=== PATIENT | female | born 1935 | race Caucasian/White ===

== ENCOUNTER 2016-12-23 16:50 | Observation (INO) ==
--- NOTE | 2016-12-23 16:59 | Emergency Department Note ---
Disposition Clinical Impression: Chest pain Disposition: Admitted As Inpatient Condition: Fair General Adult HPI - General Stated complaint: C/P Time Seen by Provider: 12/23/16 16:54 - Related Data Home Medications Medication Instructions Recorded Confirmed ALPRAZolam [Xanax 0.5 MG Tablet] 0.5 - 1 mg PO BID 12/23/16 12/24/16 Amitriptyline [Elavil] 50 mg PO HS PRN 12/23/16 12/24/16 Levothyroxine [Synthroid] 75 mcg PO QAM 12/23/16 12/24/16 Metoprolol Succinate 50 mg PO DAILY 12/23/16 12/24/16 Tramadol HCl [Ultram] 50 - 100 mg PO TID PRN 12/23/16 12/24/16 Alendronate Sodium [Fosamax] 70 mg PO QWEEK 12/24/16 12/24/16 Aspirin [Lo-Dose Aspirin EC] 81 mg PO DAILY 12/24/16 12/24/16 Citalopram Hydrobromide 20 mg PO DAILY 12/24/16 12/24/16 [Citalopram HBr] Dicyclomine [Bentyl] 10 mg PO QID PRN 12/24/16 12/24/16 Gabapentin [Neurontin] 300 mg PO DAILY 12/24/16 12/24/16 Pravastatin Sodium [Pravachol] 40 mg PO DAILY 12/24/16 12/24/16 Allergies Allergy/AdvReac Type Severity Reaction Status Date / Time Penicillins [PCN] Allergy Swelling Verified 12/23/16 17:02 of Lip/Tongue/Throat Sulfa (Sulfonamide Allergy Itching Verified 12/24/16 08:16 Antibiotics) morphine AdvReac Hallucinati Verified 12/23/16 17:02 ng Course Vital Signs Temperature 98.1 F 12/23/16 16:56 Pulse Rate 51 12/23/16 16:56 Respiratory Rate 16 12/23/16 16:56 Blood Pressure 179/93 12/23/16 16:56 O2 Sat by Pulse Oximetry 99 12/23/16 16:56 Temperature 98.3 F 12/24/16 15:51 Pulse Rate 58 12/24/16 15:51 Respiratory Rate 16 12/24/16 15:51 Blood Pressure 131/77 12/24/16 15:51 O2 Sat by Pulse Oximetry 98 12/24/16 15:51 Oxygen Delivery Oxygen Delivery Room Air Medical Decision Making - Lab Data Result diagrams: 12/23/16 17:24 12/23/16 17:24 Lab Results 12/23/16 12/23/16 12/23/16 Range/Units 17:24 17:24 17:24 WBC 5.3 (4.3-11.1) K/mcL RBC 4.65 (3.82-4.97) M/mcL Hgb 13.4 (11.5-15.4) g/dL Hct 41.3 (35.3-44.9) % MCV 88.8 (83.0-100.0) fL MCH 28.8 (28.0-33.3) pg MCHC 32.4 (31.6-35.5) g/dL RDW 12.6 (11.5-14.5) % Plt Count 183 (140-400) K/mcL MPV 11.8 (9.4-12.4) fL Immature Gran % 0.2 (0-4) % Seg Neutrophils % 59.7 % Lymphocytes % 23.4 % Monocytes % 9.3 % Eosinophils % 7.0 % Basophils % 0.4 % Neutrophils # 3.1 (1.6-8.9) K/mcL Lymphocytes # 1.2 (0.6-4.6) K/mcL Monocytes # 0.5 (0.0-1.3) K/mcL Eosinophils # 0.4 (0.0-0.6) K/mcL Basophils # 0.0 (0.0-0.2) K/mcL Sodium 141 (136-145) mEq/L Potassium 4.5 (3.5-4.5) mEq/L Chloride 110 H (98-109) mEq/L Carbon Dioxide 25 (19-29) mEq/L BUN 17 (7-20) mg/dL Creatinine 1.03 (0.57-1.11) mg/dL Est GFR ( Amer) > 60 (> 60) Est GFR (Non-Af Amer) 51 L (> 60) BUN/Creatinine Ratio 17 (6-26) Glucose 98 (70-99) mg/dL Calculated Osmolality 294 (280-300) Calcium 9.5 (8.6-10.8) mg/dL Total Bilirubin 0.8 (0.2-1.2) mg/dL Direct Bilirubin 0.3 (0.0-0.5) mg/dL Indirect Bilirubin 0.5 (0.0-1.2) mg/dL AST 14 (5-34) Units/L ALT 9 (0-55) Units/L Alkaline Phosphatase 72 (38-126) Units/L Troponin I (0-0.03) ng/mL Serum Total Protein 7.0 (6.0-8.3) g/dL Albumin 3.6 (3.5-5.0) g/dL Globulin 3.4 (2.4-3.5) g/dL Albumin/Globulin Ratio 1.1 (1.1-2.2) 12/23/ Range/Units 17:24 WBC (4.3-11.1) K/mcL RBC (3.82-4.97) M/mcL Hgb (11.5-15.4) g/dL Hct (35.3-44.9) % MCV (83.0-100.0) fL MCH (28.0-33.3) pg MCHC (31.6-35.5) g/dL RDW (11.5-14.5) % Plt Count (140-400) K/mcL MPV (9.4-12.4) fL Immature Gran % (0-4) % Seg Neutrophils % % Lymphocytes % % Monocytes % % Eosinophils % % Basophils % % Neutrophils # (1.6-8.9) K/mcL Lymphocytes # (0.6-4.6) K/mcL Monocytes # (0.0-1.3) K/mcL Eosinophils # (0.0-0.6) K/mcL Basophils # (0.0-0.2) K/mcL Sodium (136-145) mEq/L Potassium (3.5-4.5) mEq/L Chloride (98-109) mEq/L Carbon Dioxide (19-29) mEq/L BUN (7-20) mg/dL Creatinine (0.57-1.11) mg/dL Est GFR ( Amer) (> 60) Est GFR (Non-Af Amer) (> 60) BUN/Creatinine Ratio (6-26) Glucose (70-99) mg/dL Calculated Osmolality (280-300) Calcium (8.6-10.8) mg/dL Total Bilirubin (0.2-1.2) mg/dL Direct Bilirubin (0.0-0.5) mg/dL Indirect Bilirubin (0.0-1.2) mg/dL AST (5-34) Units/L ALT (0-55) Units/L Alkaline Phosphatase (38-126) Units/L Troponin I 0.00 (0-0.03) ng/mL Serum Total Protein (6.0-8.3) g/dL Albumin (3.5-5.0) g/dL Globulin (2.4-3.5) g/dL Albumin/Globulin Ratio (1.1-2.2) Attestation Statement - Attestation Attestation: I examined this patient and my medical decision-making was reviewed with the Resident Physician. I agree with the documented findings, disposition and treatment plan as described except to the extent set forth below. [id number] time provided The patient complains of chest discomfort and bilateral arm pain. Symptoms started 3 weeks ago. States she gets diaphoretic and working in her garden. h/ o [place] in the past. She appears in no acute distress on exam. She is somewhat of a reserved historian. Patient evaluated in conjunction with the resident physician
--- NOTE | 2016-12-23 17:13 | Emergency Department Note ---
Disposition Clinical Impression: Chest pain Disposition: Admitted As Inpatient Condition: Fair Referrals: NO,PCP [Non-Partnered Physician] - Time of Disposition: 18:12 Chest Pain HPI - General Chief Complaint: ED Chest Pain Stated Complaint: C/P Time Seen by Provider: 12/23/16 16:54 Source: patient Limitations: no limitations Vital Signs Reviewed: Yes Nursing Notes Reviewed: Yes - History of Present Illness HPI Narrative: Patient is an 81-year-old female with a past medical history of SD that was treated with medication not stents, presents today with not feeling well for the past 3 weeks. She states she has felt weak and low energy. She has a history of anemia. The patient states that she does have some chest pain that is left-sided and sharp she feels like the pain worsens when she is outside working in her garden's on a hot day and she comes inside when she rests the pain improves. She denies radiation. She denies any fevers, chills, vomiting, shortness of breath, pain with breath, abdominal pain, diarrhea, urinary dysuria , change in frequency, urgency. Severity scale (1-10): 8 - Related Data Allergies Allergy/AdvReac Type Severity Reaction Status Date / Time Penicillins [PCN] Allergy Swelling Verified 12/23/16 17:02 of Lip/Tongue/Throat Sulfa (Sulfonamide Allergy Itching Verified 12/23/16 17:02 Antibiotics) morphine AdvReac Hallucinati Verified 12/23/16 17:02 ng All systems ED: reviewed and negative except as stated. Constitutional: Denies: fever, chills Cardiovascular: Reports: chest pain. Denies: palpitations, dyspnea on exertion Respiratory: Denies: cough, dyspnea, wheezes Gastrointestinal: Denies: abdominal pain, nausea, vomiting, diarrhea, hematemesis, melena Genitourinary: Denies: urgency, dysuria, frequency, hematuria Musculoskeletal: Denies: back pain, neck pain Integumentary: Denies: rash, abrasion Neurological: Denies: headache, weakness Chest Pain PMH - Past Medical History Medical history: Reports: hyperlipidemia, hypertension, myocardial infarction, osteoporosis Psychiatric history: Reports: anxiety SPRAY BLENDER history: Reports: no SPRAY BLENDER history - Social History Smoking Status: Never smoker Alcohol use: Reports: none Drug use: Reports: none Physical Exam Patient is a pleasant 81-year-old female she is sitting up in bed smiling pleasant and speaking in full sentences in no distress. - General Limitations: no limitations General appearance: alert, in no apparent distress - Head Head exam: atraumatic, normocephalic, normal inspection - Eye Eye exam: Present: normal appearance, PERRL, EOMI - ENT ENT exam: normal exam, normal oropharynx - Neck Neck exam: Present: normal inspection, full ROM, trachea midline. Absent: tenderness - Chest Chest inspection: Present: normal inspection, symmetric chest wall rise. Absent : tenderness - Respiratory Respiratory exam: Present: normal lung sounds bilaterally. Absent: respiratory distress, wheezes - Cardiovascular Cardiovascular exam: Present: regular rate, normal rhythm, normal heart sounds - Abdominal Exam Abdominal exam: Present: soft, Non-Tender, normal bowel sounds - Extremities Exam Extremities exam: Present: normal inspection, full ROM, normal capillary refill. Absent: tenderness, pedal edema, calf tenderness - Expanded Lower Extremity Exam Hip/Pelvis exam: Present: normal inspection, full ROM Lower leg exam: Present: normal inspection, full ROM. Absent: tenderness, swelling Neurovascular/Tendon exam: Present: normal capillary refill. Absent: pulse deficit, motor deficit, sensory deficit - Back Exam Back exam: Present: normal inspection, full ROM - Neurological Exam Neurological exam: Present: alert, oriented X3 - Psychiatric Psychiatric exam: Present: normal affect, normal mood - Skin Skin exam: Present: warm, dry, intact, normal color Course Course Narrative: Patient is a 81-year-old female to past medical history of SD who presents with not feeling well for the past 3 weeks and she also had some intermittent chest pain that she does not notice completely a pattern of exertion however she states when she is outside working in the heat she notices it gets worse. It is improved when she rests however, it does occurred spontaneously when she is sitting down.I will initiate a cardiac workup for this patient. - Reevaluation(s) Reevaluation #1: I have treated the patient on her lab states she is having a 4 out of 10 chest pain today we will order some sublingual nitroglycerin for her pain Time: 17:50 Reevaluation #2: I spoke with the hospitalists Niurka she agrees to admit the patient for ACS rule out. I spoke with the patient and updated her with the plan patient agrees. Time: 18:11 Vital Signs Temperature 98.1 F 12/23/16 16:56 Pulse Rate 51 12/23/16 16:56 Respiratory Rate 16 12/23/16 16:56 Blood Pressure 179/93 12/23/16 16:56 O2 Sat by Pulse Oximetry 99 12/23/16 16:56 Temperature 98.1 F 12/23/16 16:56 Pulse Rate 50 12/23/16 18:08 Respiratory Rate 16 12/23/16 18:08 Blood Pressure 170/91 12/23/16 18:08 O2 Sat by Pulse Oximetry 96 12/23/16 18:08 Oxygen Delivery Oxygen Delivery Room Air Chest Pain - Medical Records Medical records reviewed: Yes I reviewed the patient's medical records. - Lab Data Lab results reviewed: Yes I reviewed the patient's lab results. Result diagrams: 12/23/16 17:24 12/23/16 17:24 Lab Results 12/23/16 12/23/16 12/23/16 Range/Units 17:24 17:24 17:24 WBC 5.3 (4.3-11.1) K/mcL RBC 4.65 (3.82-4.97) M/mcL Hgb 13.4 (11.5-15.4) g/dL Hct 41.3 (35.3-44.9) % MCV 88.8 (83.0-100.0) fL MCH 28.8 (28.0-33.3) pg MCHC 32.4 (31.6-35.5) g/dL RDW 12.6 (11.5-14.5) % Plt Count 183 (140-400) K/mcL MPV 11.8 (9.4-12.4) fL Immature Gran % 0.2 (0-4) % Seg Neutrophils % 59.7 % Lymphocytes % 23.4 % Monocytes % 9.3 % Eosinophils % 7.0 % Basophils % 0.4 % Neutrophils # 3.1 (1.6-8.9) K/mcL Lymphocytes # 1.2 (0.6-4.6) K/mcL Monocytes # 0.5 (0.0-1.3) K/mcL Eosinophils # 0.4 (0.0-0.6) K/mcL Basophils # 0.0 (0.0-0.2) K/mcL Sodium 141 (136-145) mEq/L Potassium 4.5 (3.5-4.5) mEq/L Chloride 110 H (98-109) mEq/L Carbon Dioxide 25 (19-29) mEq/L BUN 17 (7-20) mg/dL Creatinine 1.03 (0.57-1.11) mg/dL Est GFR ( Amer) > 60 (> 60) Est GFR (Non-Af Amer) 51 L (> 60) BUN/Creatinine Ratio 17 (6-26) Glucose 98 (70-99) mg/dL Calculated Osmolality 294 (280-300) Calcium 9.5 (8.6-10.8) mg/dL Total Bilirubin 0.8 (0.2-1.2) mg/dL Direct Bilirubin 0.3 (0.0-0.5) mg/dL Indirect Bilirubin 0.5 (0.0-1.2) mg/dL AST 14 (5-34) Units/L ALT 9 (0-55) Units/L Alkaline Phosphatase 72 (38-126) Units/L Troponin I (0-0.03) ng/mL Serum Total Protein 7.0 (6.0-8.3) g/dL Albumin 3.6 (3.5-5.0) g/dL Globulin 3.4 (2.4-3.5) g/dL Albumin/Globulin Ratio 1.1 (1.1-2.2) 12/23/16 Range/Units 17:24 WBC (4.3-11.1) K/mcL RBC (3.82-4.97) M/mcL Hgb (11.5-15.4) g/dL Hct (35.3-44.9) % MCV (83.0-100.0) fL MCH (28.0-33.3) pg MCHC (31.6-35.5) g/dL RDW (11.5-14.5) % Plt Count (140-400) K/mcL MPV (9.4-12.4) fL Immature Gran % (0-4) % Seg Neutrophils % % Lymphocytes % % Monocytes % % Eosinophils % % Basophils % % Neutrophils # (1.6-8.9) K/mcL Lymphocytes # (0.6-4.6) K/mcL Monocytes # (0.0-1.3) K/mcL Eosinophils # (0.0-0.6) K/mcL Basophils # (0.0-0.2) K/mcL Sodium (136-145) mEq/L Potassium (3.5-4.5) mEq/L Chloride (98-109) mEq/L Carbon Dioxide (19-29) mEq/L BUN (7-20) mg/dL Creatinine (0.57-1.11) mg/dL Est GFR ( Amer) (> 60) Est GFR (Non-Af Amer) (> 60) BUN/Creatinine Ratio (6-26) Glucose (70-99) mg/dL Calculated Osmolality (280-300) Calcium (8.6-10.8) mg/dL Total Bilirubin (0.2-1.2) mg/dL Direct Bilirubin (0.0-0.5) mg/dL Indirect Bilirubin (0.0-1.2) mg/dL AST (5-34) Units/L ALT (0-55) Units/L Alkaline Phosphatase (38-126) Units/L Troponin I 0.00 (0-0.03) ng/mL Serum Total Protein (6.0-8.3) g/dL Albumin (3.5-5.0) g/dL Globulin (2.4-3.5) g/dL Albumin/Globulin Ratio (1.1-2.2) - Radiology Data Radiology results reviewed: Yes I reviewed the patient's radiology results. Chest X-Ray 12/23/16 17:06 IMPRESSION: 1. No acute cardiopulmonary process. 2. No evidence for large hiatal hernia. D/ / Gerard Sprague MD / Gerard Sprague MD Interpreting Provider: Gerard Sprague MD - EKG Data EKG attestation: Yes I reviewed and interpreted this EKG. EKG results narrative: I interpreted the patient's EKG she has sinus bradycardia at a rate of 53 she is normal axis. UT, QRS, QT intervals are within normal limits. I do not see any ST elevation or depression or Q waves, no signs of ischemia. Unchanged when compared to her prior EKG from 11/12/2011
[2016-12-23 17:37] LABS: Basophils % 0.4 %; Eosinophils # 0.4 K/mcL (0.0-0.6); Hematocrit 41.3 % (35.3-44.9); Hemoglobin 13.4 g/dL (11.5-15.4); Immature Granulocytes % 0.2 % (0-4); Lymphocytes # 1.2 K/mcL (0.6-4.6); Lymphocytes % 23.4 %; Mean Corpuscular HGB Conc 32.4 g/dL (31.6-35.5); Mean Corpuscular Hemoglobin 28.8 pg (28.0-33.3); Mean Corpuscular Volume 88.8 fL (83.0-100.0); Mean Platelet Volume 11.8 fL (9.4-12.4); Monocytes # 0.5 K/mcL (0.0-1.3); Monocytes % 9.3 %; Neutrophils # 3.1 K/mcL (1.6-8.9); Platelet Count 183 K/mcL (140-400); Red Blood Count 4.65 M/mcL (3.82-4.97); Red Cell Distribution Width 12.6 % (11.5-14.5); Segmented Neutrophils % 59.7 %
[2016-12-23 17:50] LABS: BUN/Creatinine Ratio 17 (6-26); Blood Urea Nitrogen 17 mg/dL (7-20); Calcium 9.5 mg/dL (8.6-10.8); Carbon Dioxide 25 mEq/L (19-29); Chloride 110 mEq/L (98-109); Glucose 98 mg/dL (70-99); Osmolality,Calculated 294 (280-300); Potassium 4.5 mEq/L (3.5-4.5); Sodium 141 mEq/L (136-145); eGFR For African Americans > 60 (> 60); eGFR For Non-African Americans 51 (> 60)
[2016-12-23 17:53] LABS: Albumin 3.6 g/dL (3.5-5.0); Albumin/Globulin Ratio 1.1 (1.1-2.2); Bilirubin,Direct 0.3 mg/dL (0.0-0.5); Bilirubin,Indirect 0.5 mg/dL (0.0-1.2); Bilirubin,Total 0.8 mg/dL (0.2-1.2); Globulin 3.4 g/dL (2.4-3.5)
[2016-12-23] MEDS: Nitroglycerin 0.4 MG TAB.SUBL SL PRN ×4 (18:07→21:23)
[2016-12-23] MEDS ORDERED: 0.9 % Sodium Chloride 1,000 ML IVC ONE (18:15)
[2016-12-23] MEDS ORDERED: *HR* FentaNYL (PF) 100 MCG/2 ML VIAL IVP ONE (18:15)
[2016-12-23] MEDS ORDERED: Ibuprofen 600 MG TABLET PO ONE (18:22)
[2016-12-23] MEDS ORDERED: Acetaminophen 325 MG TABLET PO PRN (19:19)
[2016-12-23] MEDS ORDERED: Naloxone 0.4 MG/ML INJ IVP PRN (19:19)
[2016-12-23] MEDS ORDERED: D5% in 0.45% NACL 1,000 ML IVC SCH (20:15)
--- NOTE | 2016-12-23 20:26 | Internal Med History&Physical ---
Date of Encounter: 12/23/16 Time of Encounter: 20:00 Assessment and Plan (1) Chest pain Current visit: Yes Status: Acute Left-sided chest pain. Intermittent. Moderate risk for ACS and angina. Patient does not want a cardiac stress test at this time. We will get 2-D echo of the heart. Trend troponins. Monitor with telemetry. Check lipid profile and A1c. Qualifiers: Chest pain type: precordial pain Qualified Code(s): R07.2 - Precordial pain (2) Generalized weakness Current visit: Yes Status: Acute Check urine for any signs of acute urinary tract infection. Gentle hydration. PT OT evaluation. Internal Medicine - H&P: HPI Chief complaint: Weakness, chest pain Admitted From: Emergency Dept Plans for Post Hospital Care: Home History of present illness: Ms. Falcon is a 81 year old female patient with a history of hypertension, hyperlipidemia, [place], osteoporosis presented to the ER complaining of 3-4 week history of generalized weakness with intermittent chest pain that is left-sided and gets worse when she is working in her garden. It does not radiate anywhere. It resolved spontaneously. Patient has also been having some weakness in her upper extremities that comes and goes. Denies any dysuria but had couple of episodes of chills. No fever. Also complains of some shortness of breath. No cough or palpitations. Patient reports that she had a cardiac stress test done a few years back. It was not positive. She did not like this stress test and does not wish to undergo a stress test at this time. Past Med Surg Social Fam HX - Past Medical History Attestation: Yes The following information was validated with the patient. Source: patient Medical history: hyperlipidemia, hypertension, myocardial infarction, osteoporosis Psychiatric history: anxiety - Social History Smoking Status: Never smoker Smokeless Tobacco Status: No Alcohol use: none Drug use: none - Additional Family History Additional family history: There is history of cardiac disease in patient's family Internal Medicine - H&P: Meds Allergies Penicillins [PCN] Allergy (Verified 12/23/16 17:02) Swelling of Lip/Tongue/Throat Sulfa (Sulfonamide Antibiotics) Allergy (Verified 12/23/16 17:02) Itching morphine Adverse Reaction (Verified 12/23/16 17:02) Hallucinating All Systems PM: A 10-system review of systems was performed and is negative for pertinent findings except as documented above in the HPI. - Constitutional Constitutional: chills, malaise, weakness, no fever(s), no night sweats - EENT Eyes: no change in vision, no discharge, no pain, no photophobia Ears: no ear discharge, no ear pain, no tinnitus Nose, mouth and throat: no dysphagia, no nasal discharge, no neck pain, no sore throat - Cardiovascular Cardiovascular ROS IM: chest pain, dyspnea on exertion, no diaphoresis, no dyspnea, no lightheadedness, no palpitations, no syncope - Respiratory Respiratory: dyspnea on exertion, no cough, no dyspnea, no wheezing, no excessive phlegm production - Gastrointestinal Gastrointestinal: no abdominal pain, no diarrhea, no hematemesis, no hematochezia, no melena, no nausea, no vomiting - Genitourinary Genitourinary: no change in urinary stream, no dysuria, no flank pain, no hematuria - Musculoskeletal Musculoskeletal ROS IM: no numbness, no tingling - Integumentary Integumentary IM: no rash, no unusual bruising - Neurological Neurological ROS: no confusion, no convulsions, no focal weakness, no numbness, no tingling, no tremor(s) - Hematologic/Lymphatic Hematologic/Lymphatic: no easy bruising - Constitutional Vitals: Temp Pulse Resp BP Pulse Ox 98.1 F 50 16 170/91 96 12/23/16 16:56 12/23/16 18:08 12/23/16 18:46 12/23/16 18:46 12/23/16 18:08 General appearance: Present: cooperative, A&O X 3, pleasant, no acute distress, answers questions appropriately - Eye Eye exam: Present: EOMI, PERRL, conjuntiva pink, sclera anicteric - Neck Neck exam general surgery: Present: supple, trachea midline. Absent: lymphadenopathy - Respiratory Respiratory exam: Present: CTAB. Absent: accessory muscle use, rales, rhonchi, wheezes - Cardiovascular Cardiovascular exam: Present: RRR, +S1, +S2. Absent: diastolic murmur, gallop, rubs, systolic murmur - GI/Abdominal GI/Abdominal exam: Present: normal bowel sounds, soft, no peritoneal signs. Absent: distended, tenderness - Extremities Exam Extremities exam: Present: warm, radial pulses palpable and symetrical. Absent : calf tenderness, cyanotic, pedal edema - Neurological Exam Neurological exam: Present: CN II-XII intact, oriented X3, no focal deficits, strengths equal and symetr throughout. Absent: facial droop, speech deficit - Skin Skin exam: Present: dry, intact Internal Med - H&P Results - Labs CBC & Chem 7: 12/23/16 17:24 12/23/16 17:24 - EKG Data -: EKG Interpreted by Myself EKG shows normal: sinus rhythm Rate: bradycardia - EKG Data Interpretation IM: normal EKG - Impressions Impressions Chest x-ray does not show any acute infiltrate. Patient does have hiatal hernia.
[2016-12-23 21:13] LABS: Bilirubin,Urine Negative (Negative); Blood,Urine Trace (Negative); Clarity,Urine Clear (Clear); Color,Urine Yellow (Yellow); Glucose,Urine (UA) Normal (Normal); Ketones,Urine Negative (Negative); Leukocyte Esterase,Urine Negative (Negative); Nitrite,Urine Negative (Negative); Protein,Urine Negative (Neg-Trace); Specific Gravity,Urine 1.007 (1.010-1.025); Urobilinogen,Urine Normal (Normal)
[2016-12-23 21:15] LABS: Bacteria,Urine None Seen per hpf (None-Few); Hyaline Casts,Urine None Seen per lpf (None-Few); RBC,Urine 0-3 per hpf (0-3); Squamous Epithelial Cell,Urine Few per lpf (None-Few); WBC,Urine 0-3 per hpf (0-3)
[2016-12-23] MEDS ORDERED: traMADol 50 MG TABLET PO PRN (21:46)
[2016-12-23] MEDS ORDERED: ALPRAZolam 0.5 MG TABLET PO PRN (21:46)
[2016-12-24 06:10] LABS: Hemoglobin A1C 4.9 %
[2016-12-24 06:13] LABS: Chol/HDL Ratio 3.1 (0-4.9)
[2016-12-24] MEDS ORDERED: Metoprolol XL (24 HR) Succ 50 MG TAB.ER.24H PO SCH (09:00)
[2016-12-24] MEDS ORDERED: Aspirin Enteric Coated 81 MG Tablet PO SCH (09:00)
[2016-12-24 15:51] VITALS: BP 131/77
--- NOTE | 2016-12-24 15:57 | Electrocardiograph Report ---
[address] [address] Test Date: 2016-12-23 Pat Name: Nick Falcon Department: 105 Room: 3B Gender: F Golf Cart Attendant: : 1935 Requested By: Joce Lancaster Order Number: [id number] Reading MD: Trino Shannon MD Measurements Intervals [place] Rate: 53 P: 21 SC: 162 QRS: 28 QRSD: 85 T: 52 QT: 409 QTc: 392 Interpretive Statements SINUS BRADYCARDIA Electronically Signed On 12-24-2016 15:55:46 EDT by Trino Shannon MD
--- NOTE | 2016-12-24 16:45 | Discharge Summary ---
Date of Encounter: 12/24/16 Time of Encounter: 14:00 - Discharge Diagnosis (1) Chest pain Priority: Primary Status: Acute Qualifiers: Chest pain type: precordial pain Qualified Code(s): R07.2 - Precordial pain (2) Herniated disc, cervical Status: Acute (3) Generalized weakness Status: Acute - Discharge Medications Home Medications: ALPRAZolam [Xanax 0.5 MG Tablet] 0.5 - 1 mg PO BID 12/23/16 [History] Amitriptyline [Elavil] 50 mg PO HS PRN 12/23/16 [History] Levothyroxine [Synthroid] 75 mcg PO QAM 12/23/16 [History] Metoprolol Succinate 50 mg PO DAILY 12/23/16 [History] Tramadol HCl [Ultram] 50 - 100 mg PO TID PRN 12/23/16 [History] Alendronate Sodium [Fosamax] 70 mg PO QWEEK 12/24/16 [History] Aspirin [Lo-Dose Aspirin EC] 81 mg PO DAILY 12/24/16 [History] Citalopram Hydrobromide [Citalopram HBr] 20 mg PO DAILY 12/24/16 [History] Dicyclomine [Bentyl] 10 mg PO QID PRN 12/24/16 [History] Gabapentin [Neurontin] 300 mg PO DAILY 12/24/16 [History] Pravastatin Sodium [Pravachol] 40 mg PO DAILY 12/24/16 [History] Allergies/Adverse Reactions: Allergies Penicillins [PCN] Allergy (Verified 12/23/16 17:02) Swelling of Lip/Tongue/Throat Sulfa (Sulfonamide Antibiotics) Allergy (Verified 12/24/16 08:16) Itching morphine Adverse Reaction (Verified 12/23/16 17:02) Hallucinating Procedures/tests Complete & Pending: Procedures Performed prior 72 hours Category Date Time Status CT cervical spine wo con [CT] Routine Cat Scan 12/24/16 15:04 Completed EV echocardiogram Routine Y 12/24/16 20:15 Completed Date of admission: 12/23/16 18:25 Primary care physician: Wagner Minor MD Consults: 12/23/16 20:15 Consult to Occupational Therapy [CONS] Routine Comment: Evaluate, develop and implement POC Reason for Consult: Gen weakness Consult to Physical Therapy [CONS] Routine Comment: Evaluate, develop and implement POC Reason for Consult: Gen weakness 12/24/16 11:12 Consult to Microchip Specialist [CONS] Routine Reason for SW Consult: discharge planning Discharging clinician: Joslyn george) Anticipated date of discharge: 12/24/16 - Patient Status Condition: Fair - Discharge Instructions Forms: ED Satisfaction Letter Hospital course: Ms. Falcon is a 81 year old female - Time Spent with Patient Total time spent providing and/or coordinating discharge services: - Constitutional Vitals: Temp Pulse Resp BP Pulse Ox 98.3 F 58 16 131/77 98 12/24/16 15:51 12/24/16 15:51 12/24/16 15:51 12/24/16 15:51 12/24/16 15:51 General appearance: Present: cooperative, A&O X 3, pleasant, no acute distress, answers questions appropriately
--- NOTE | 2016-12-24 17:08 | Internal Med Progress Note ---
Date of Encounter: 12/24/16 Time of Encounter: 14:20 - Assessment and plan (1) Chest pain Current Visit: Yes Status: Acute Assessment and plan: Patient reports intermittent left chest pain for the last 3-4 weeks. There is no radiation and it resolved spontaneously. She is also been having weakness in both upper extremities that comes and goes, she states that the right is worse than the left. He denies any shortness of breath, cough, palpitations, dizziness, blurred vision. Troponins are negative. Chest x-ray is negative. Echocardiogram remains unread at this point. Patient does not want to wait and she is going to go home. S1-S2 is heard, regular rate and rhythm without gallops, clicks, murmurs. She has declined having a stress test. She says that it did not make her feel good and she does not wish to have one again. EKGs showed sinus bradycardia with a rate of 53, MA interval 162, QRS 85, QTC 392. Patient's pulse rate on the monitor has been anywhere from 60-47. Patient will follow up with primary care physician for results of echocardiogram and for further testing. Qualifiers: Chest pain type: precordial pain Qualified Code(s): R07.2 - Precordial pain (2) Herniated disc, cervical Current Visit: Yes Status: Acute Assessment and plan: Per cervical spine CT. Patient reports bilateral weakness, right left and worse. She is neurologically intact strength is strong and equal bilaterally. She reports intermittent tingling and weakness, but it resolved spontaneously. We have made an appointment with neurology for follow-up. (3) Generalized weakness Current Visit: Yes Status: Acute Assessment and plan: Plan as above. - Time Spent With Patient less than 15 minutes - Subjective Interval history: Pt was seen and assessed at about 1420 today. Pt states that she is chest pain free and that she is ready to go home. Her upper extremity strength is strong and equal bilaterally. She states that her right arm has been weak for several months and that sometimes she gets occipital headaches. Pt had c-spine CT one on 12/24 that showed no acute abnormality, moderate degenerative changes in suspect central disc protrusion or herniation C4-C5. She does have point tenderness to right posterior neck and C4-C5 area. She states sometimes that she has tingling down her arm and then it feels weak, but it is intermittent. We have made an appointment with neurology office for an outpatient visit. Patient denies chest pain. She has decided to sign out AMA because her echocardiogram is not read yet and she is ready to go home. We discussed the risks and benefits of staying versus going. She said that she wants to go home and will follow up for the results. She is alert and oriented 3, she is appropriate, thought processes are clear. She denies shortness of breath, nausea, vomiting, diaphoresis. Her physical exam is unremarkable. - Constitutional Vitals: Temp Pulse Resp BP Pulse Ox 98.3 F 58 16 131/77 98 12/24/16 15:51 12/24/16 15:51 12/24/16 15:51 12/24/16 15:51 12/24/16 15:51 General appearance: Present: cooperative, A&O X 3, pleasant, no acute distress, answers questions appropriately - Head Head exam: Present: normal inspection - Eye Eye exam: Present: normal appearance, conjuntiva pink - ENT ENT exam: Present: mucous membranes moist, normal external ear exam - Neck Neck exam general surgery: Present: normal inspection. Absent: lymphadenopathy , tenderness - Respiratory Respiratory exam: Present: CTAB. Absent: rales, respiratory distress, rhonchi, stridor, wheezes - Cardiovascular Cardiovascular exam: Present: RRR, +S1, +S2. Absent: diastolic murmur, systolic murmur - GI/Abdominal GI/Abdominal exam: Present: normal bowel sounds, soft. Absent: distended, tenderness - Extremities Exam Extremities exam: Present: normal capillary refill, warm, radial pulses palpable and symetrical. Absent: pedal edema, tenderness - Neurological Exam Neurological exam: Present: alert, normal gait, oriented X3, no focal deficits, strengths equal and symetr throughout. Absent: altered, motor sensory deficit, facial droop, speech deficit - Skin Skin exam: Present: dry, intact, normal color, warm Internal Medicine: Result - Labs CBC & Chem 7: 12/23/16 17:24 12/23/16 17:24 Labs: Cardiac Enzymes 12/23/16 12/24/16 Range/Units 23:18 05:19 Troponin I 0.00 0.00 (0-0.03) ng/mL Urine 12/23/16 Range/Units 20:50 Urine Color Yellow (Yellow) Urine Clarity Clear (Clear) Urine pH 6.0 (5.0-8.0) pH Units Ur Specific [place] 1.007 L (1.010-1.025) Urine Protein Negative (Neg-Trace) mg/dL Urine Glucose (UA) Normal (Normal) mg/dL - Impressions Impressions Cervical Spine CT 12/24/16 15:04 IMPRESSION: No acute abnormality of the cervical spine. Moderate interspace degenerative changes as above. Suspect central disc protrusion or herniation C4-5. D/ / Blas Quach MD / Blas Quach MD Interpreting Provider: Blas Quach MD Consult Discharge Plan - Plan Referrals: Wagner Minor MD [Primary Care Provider] -
== END 2016-12-24 17:30 | disposition left against medical advice (07) ==
LOC: EMEROO 16:50 → 3BNU 16:50
PROVIDERS: ADMIT Internal Medicine; ATTEND Registered Nurse

== ENCOUNTER 2017-03-25 06:05 | Inpatient (IN) ==
[2017-03-25] MEDS ORDERED: Plasma-Lyte A (PH 7.4) 1,000 ML IVC SCH (06:30)
[2017-03-25] MEDS ORDERED: Clindamycin 900 MG/50 ML 900 MG/50 ML IV.SOLN IVPB ONE (06:30)
[2017-03-25] MEDS ORDERED: Lidocaine -MPF 1% 2 ML VIAL ID ONE (06:30)
[2017-03-25] MEDS ORDERED: Dexamethasone 4 MG/ML VIAL ONE (07:04)
[2017-03-25] MEDS ORDERED: *HR* Phenylephrine 10 MG/ML VIAL ONE (07:04)
[2017-03-25] MEDS ORDERED: Propofol 500 MG/50 ML INFUS..BTL ONE ×2 (07:04→11:29)
[2017-03-25] MEDS ORDERED: *HR* Succinylcholine 200 MG/10 ML VIAL IVP ONE (07:04)
[2017-03-25] MEDS ORDERED: Ondansetron 4 MG/2 ML VIAL ONE (07:04)
[2017-03-25] MEDS ORDERED: *HR* Rocuronium Bromide 50 MG/5 ML VIAL ONE (07:04)
[2017-03-25] MEDS ORDERED: *HR* Midazolam HCl 2 MG/2 ML VIAL ONE (07:04)
[2017-03-25] MEDS ORDERED: *HR* Propofol 200 MG/20 ML VIAL IVP ONE (07:04)
[2017-03-25] MEDS ORDERED: Lidocaine -MPF 4% 5 ML AMPUL ONE (07:04)
[2017-03-25] MEDS ORDERED: Lidocaine -MPF 2% 2 ML VIAL ONE (07:04)
[2017-03-25] MEDS ORDERED: *HR* FentaNYL (PF) 100 MCG/2 ML VIAL ONE (07:04)
[2017-03-25] MEDS ORDERED: *HR* Remifentanil 1 MG VIAL IVP ONE (07:04)
--- NOTE | 2017-03-25 07:36 | Anesthesia Evaluation PreOp ---
Date of Encounter: 03/25/17 Time of Encounter: 07:34 - Past History Planned Operation: ACDF Cardiac History: [place], CHF, Angina, Hyperlipidemia, Other (Severe Pulm HTN) Pulmonary History: Denies Any Significant HX STEREOPTIC PROJECTION TOPOGRAPHER History: Denies Any Significant HX Other Medical History: GERD Anesthesia History: No Prior Anesthetic Complications Alcohol Use: none Drug use: none Medications and Allergies ALPRAZolam [Xanax 0.5 MG Tablet] 0.5 - 1 mg PO BID 12/23/16 [History] Amitriptyline [Elavil] 50 mg PO HS PRN 12/23/16 [History] Levothyroxine [Synthroid] 75 mcg PO QAM 12/23/16 [History] Metoprolol Succinate 50 mg PO DAILY 12/23/16 [History] Tramadol HCl [Ultram] 50 - 100 mg PO TID PRN 12/23/16 [History] Aspirin [Lo-Dose Aspirin EC] 81 mg PO DAILY 12/24/16 [History] Citalopram Hydrobromide [Citalopram HBr] 20 mg PO DAILY 12/24/16 [History] Dicyclomine [Bentyl] 20 mg PO BID PRN 12/24/16 [History] Pravastatin Sodium [Pravachol] 40 mg PO DAILY 12/24/16 [History] 3 Allergy/AdvReac Type Severity Reaction Status Date / Time Penicillins [PCN] Allergy Swelling Verified 03/18/17 15:32 of Lip/Tongue/Throat Sulfa (Sulfonamide Allergy Itching Verified 03/18/17 15:32 Antibiotics) morphine AdvReac Hallucinati Verified 03/18/17 15:32 ng - Meds/Allergy Pre-op Review Medications Reviewed: Yes Allergies Reviewed: Yes Beta Blockers on Current Med List: Yes Anesthesia Results - Labs Laboratory Tests 12/23/16 12/24/16 02/20/17 17:24 05:19 15:42 Hgb Hct Plt Count INR APTT Sodium Potassium Creatinine Glucose 98 Hemoglobin A1c 4.9 Calcium 9.5 B-Natriuretic Peptide 70 03/18/17 03/18/17 03/18/17 15:55 15:55 15:55 Hgb 13.2 Hct 40.3 Plt Count 200 INR 1.1 APTT 27.1 Sodium 141 Potassium 4.5 Creatinine 1.07 Glucose Hemoglobin A1c Calcium B-Natriuretic Peptide - Imaging Additional studies: 2DE: Impressions: LVEF 60-65%. Normal LV chamber size, wall thickness and function. Mild left ventricular diastolic dysfunction. Normal right ventricular structure and function. Moderate tricuspid regurgitation. Severe pulmonary hypertension. Estimated RVSP is 67 mmHg. PFTs: INTERPRETATION: Spirometry is Normal No response to inhaled bronchodilators is seen Lung Volumes are normal. Diffusion Capacity is mildly reduced. Flow Volume Loop: Normal. Anesthesia Exam Vital Signs/O2 Sat, Most Current Temp Pulse Resp BP Pulse Ox 97.9 F 61 18 163/80 98 03/25/17 06:59 03/25/17 06:59 03/25/17 06:59 03/25/17 06:59 03/25/17 06:59 Height: 5'3" Weight: 152 NPO (# of Hours): >8 - HEENT Mallampati: I Teeth: Missing, Poor dentition Oral Opening: Greater than 3 - STEREOPTIC PROJECTION TOPOGRAPHER LOC: Confused - Cardiac Rhythm: Regular - Pulmonary Breath Sounds: bilateral Clear Anesthesia Assess/Plan ASA Score: 4 Anesthetic Plan: General Monitoring Plan: Standard Monitors, A-Line Recovery Plan: PACU Anes Supervising Prov Stmt: Patient understands that she/he is at increased risk for perioperative complications including myocardial infarct, arrhythmias, CVA, post op vent support/ICU stay, and . Patient wishes to proceed. Patient informed and consented. Risks, benefits, and alternatives discussed. Patient wishes to proceed.
[2017-03-25] MEDS ORDERED: Heparin 1,000 UNITS/500 mL NS 500 ML ONE (07:37)
--- NOTE | 2017-03-25 07:38 | History & Physical Report ---
Date of Encounter: 03/25/17 Time of Encounter: 07:37 24 Hour HP Update - Instructions Instructions: If the History and Physical is less than 30 days old and was completed prior to A.M. admission and or procedure and has NOT been updated on calendar day of procedure please complete this update prior to performing procedure. - Update Patient reports changes in Medical Condition: No Changes in examination, assessment, or condition: No Changes in Medication: No Preop tests/diagnostics Reviewed: Yes Pre-Op MRSA Screen: Negative Surgery Remains Indicated: Yes Consent for Planned Operative Procedure(s) Verified: Yes - Pre-Operative Checklist Preoperative Checklist Indicated: No Prophylactic Antibiotic Ordered: Yes Home Medications Include Beta Yaz: Yes Beta Yaz Taken Today (Day of Surgery): No Beta Yaz Taken Yesterday (Day Prior to Surgery): Yes Is VTE Prophylaxis Indicated?: Yes
[2017-03-25] MEDS ORDERED: Ringers Solution, Lactated 1,000 ML IVC SCH ×2 (08:00→11:39)
[2017-03-25] MEDS ORDERED: Lacri-Lube 3.5 GM TUBE ONE (08:05)
[2017-03-25] MEDS ORDERED: EPHEDrine 50 MG/ML VIAL ONE (08:08)
[2017-03-25] MEDS ORDERED: Ondansetron 4 MG/2 ML VIAL IVP ONE (09:00)
[2017-03-25] MEDS ORDERED: *HR* Labetalol 20 MG/4 ML SYRINGE IVP PRN (09:00)
--- NOTE | 2017-03-25 09:00 | Anesthesia Procedures ---
Date of Encounter: 03/25/17 Time of Encounter: 07:45 Procedures: Anesthesia - Arterial Line Consent obtained: written consent Time out performed: Yes Sedation: Versed (mg): 1 Sedation: Fentanyl (mcg): 50 Local Anesthetic: Lidocaine 1% Size (Gauge): 20 Length (inches): 1 3/4 Technique Used: sterile prep Post-Procedure: line taped into place, dry sterile dressing placed Patient tolerated procedure: well Complications: none Site: Radial R Comments: in OR prior to induction
--- NOTE | 2017-03-25 10:05 | Orthopedic Operative Note ---
Date of procedure: 03/25/17 Pre-op diagnosis: Cervical stenosis, cervical myelopathy Post-op diagnosis: same Operation/Findings: Anterior cervical decompression and fusion C4-C5: The patient was brought to the operating room and placed supine on the operating room table. Successful general endotracheal anesthesia intubation was performed. Neurophysiologic monitoring personnel placed leads on the upper and lower extremities as well as the cranium for EMG monitoring purposes. Appropriate baseline potentials were noted by the neurophysiologic monitoring staff. Cruz catheter was placed prior to positioning. Compression boots and stockings were used for deep vein thrombosis prophylaxis. Padding was also placed all bony prominences including the ulnar nerve near the medial epicondyles of the elbows were appropriately padded. Mild traction was placed on the bilateral shoulders and taped into place. Preoperative antibiotics were administered. The area from the mandible bilaterally to the upper thoraces was prepped and draped in the usual sterile fashion. A transverse incision was made at the level of the cricoid cartilage which is approximately 3 cm in length and extended from the midline of the cervical spine laterally towards the sternocleidomastoid muscle on the left. We then performed standard medial approach to the carotid sheath. Sponges were used to tease the fascial medial to the sternocleidomastoid muscle while carefully controlling and palpating the carotid artery. Using careful dissection we were able to get to the level of the anterior vertebral bodies and longus coli muscles. The spinal needle was placed at the appropriate C4-5 level, and intraoperative radiograph was obtained which was a cervical spine lateral radiograph. The needle and radiograph confirmed we were at the correct C4-5 operative level. We further exposed this level by using Bovie cautery under the medial edge of the longus coli muscles to allow them to be retracted approximately 2 mm laterally on each side. An 11 blade was used to perform anterior discectomy at the appropriate C4-5 level after an initial annulotomy of the anterior longitudinal ligament and annulus was performed. Further disc material was removed with pituitary Rongeurs. Subsequently, Synthes pins were placed at the C4 and C5 vertebral bodies respectively to provide distraction. We then used a Trimline cervical retractor which was placed in both medial and lateral as well as inferior superior direction to allow full visualization of the appropriate C4-5 disc and C4 and C5 vertebral bodies. The Leica microscope was brought to the field and the remainder of the procedure was performed under the guidance of this microscope. Using pituitary rongeurs and small curettes, various micro-instruments, a full discectomy was performed at the appropriate C4-5 level. The posterior longitudinal ligament was encountered and appeared partially calcified. A portion of this ligament was removed. After complete and thorough discectomy and removal of spondylitic material was performed the endplates of the C4 and C5 vertebral bodies were prepared with a bur until allow bleeding of cancellous bone. A 7 mm trial graft was evaluated and appeared to fit quite well within the excised disc space. A cortico-cancellus allograft of 7 mm was utilized, carefully tapped into place within the excised disc space with the aid of a bone tamp. It was seated approximately 2 mm from the anterior edge of the cortex of the adjacent vertebral bodies. A cervical plate was then placed on the anterior aspect of the C4 and C5 vertebral bodies. The plate was placed in the midline position after drilling four 13 mm self tapping screws and inserting them. They were locked in place using standard Venture plate maneuvers. At this point a lateral radiograph of the cervical spine was obtained and showed satisfactory position of the graft and plate. The wound was copiously irrigated and bleeders encountered were cauterized using Bovie cautery. Platysma was closed with interrupted 2-0 Vicryl sutures. Running 3-0 Monocryl suture was used for skin closure. Sterile dressing was placed over the neck wound. The patient was transferred to a hospital bed and extubated. The patient was noted to be fully motor and sensory intact in the recovery room at the end of the procedure. The medications. All sponge instrument and needle counts were correct at the end of the procedure. Anesthesia: GETA Surgeon: Reg Tucker Jr Estimated blood loss (cc): 13 Condition: stable Disposition: PACU
[2017-03-25] MEDS ORDERED: *HR* HYDROmorphone (PF) 1 MG/ML SYRINGE ONE ×2 (10:14→10:29)
[2017-03-25] MEDS: *HR* HYDROmorphone (PF) 1 MG/ML SYRINGE IVP PRN ×4 (10:15→10:35)
[2017-03-25] MEDS ORDERED: Ringers Solution, Lactated 1,000 ML ONE (10:29)
[2017-03-25] MEDS ORDERED: Acetaminophen IV 1,000 MG/100 ML INFUS..BTL IVPB ONE (10:47)
[2017-03-25] MEDS ORDERED: Acetaminophen IV 1,000 MG/100 ML INFUS..BTL ONE (10:47)
[2017-03-25] MEDS ORDERED: Ondansetron 4 MG/2 ML VIAL IVP PRN (11:39)
[2017-03-25] MEDS ORDERED: Naloxone 0.4 MG/ML INJ IVP PRN (11:39)
[2017-03-25] MEDS ORDERED: traMADol 50 MG TABLET PO PRN (11:39)
[2017-03-25] MEDS ORDERED: Acetaminophen 325 MG TABLET PO PRN (11:39)
--- NOTE | 2017-03-25 12:43 | Anesthesia Evaluation Post Op ---
Date of Encounter: 03/25/17 Time of Encounter: 12:42 - Vital Signs Vital Signs: Vital Signs/O2 Sat, Most Current Temp Pulse Resp BP Pulse Ox 97.5 F L 70 16 147/72 99 03/25/17 11:48 03/25/17 12:36 03/25/17 12:36 03/25/17 12:36 03/25/17 12:36 - Lungs Lungs: Clear Ascult./Percussion - Airway Airway: Non-obstructed - Cardiovascular Regular Rate - Mental Status Mental Status: Alert & Oriented, Answers Appropriately - Pain Pain Scale: 0 - Nausea Vomiting Nausea Vomiting: Not Present - Hydration Hydration: Tolerates oral liquids, Has not voided - Discharge PostOp Status: Transfer Patient to floor
[2017-03-25] MEDS: *HR* OxyCODONE Immed Rel 5 MG TABLET PO PRN ×2 (12:56→22:07)
[2017-03-25] MEDS ORDERED: Chloraseptic Spray 177 ML BOTTLE MM PRN (15:02)
[2017-03-25] MEDS: Clindamycin 600 MG/50 ML 600 MG/50 ML IV.SOLN IVPB SCH ×2 (15:41→23:49)
[2017-03-25] MEDS ORDERED: ALPRAZolam 1 MG TABLET PO PRN (21:00)
[2017-03-26] MEDS: *HR* OxyCODONE Immed Rel 5 MG TABLET PO PRN ×2 (05:00→13:29)
[2017-03-26] MEDS ORDERED: Metoprolol XL (24 HR) Succ 50 MG TAB.ER.24H PO SCH (09:00)
[2017-03-26] MEDS ORDERED: Aspirin Enteric Coated 81 MG Tablet PO SCH (09:00)
[2017-03-26 11:39] VITALS: BP 159/82
--- NOTE | 2017-03-26 14:15 | Discharge Summary ---
Date of Encounter: 03/26/17 Time of Encounter: 14:13 - Discharge Diagnosis (1) Cervical stenosis of spinal canal Priority: Primary Status: Chronic (2) Cervical myelopathy Priority: Secondary Status: Chronic - Discharge Medications Prescriptions: OxyCODONE Immed Rel [Roxicodone 5 MG] 5 mg PO Q6HR PRN #30 tablet PRN Reason: Severe Pain Home Medications: ALPRAZolam [Xanax 0.5 MG Tablet] 0.5 - 1 mg PO BID 12/23/16 [History] Amitriptyline [Elavil] 50 mg PO HS PRN 12/23/16 [History] Levothyroxine [Synthroid] 75 mcg PO QAM 12/23/16 [History] Metoprolol Succinate 50 mg PO DAILY 12/23/16 [History] Tramadol HCl [Ultram] 50 - 100 mg PO TID PRN 12/23/16 [History] Aspirin [Lo-Dose Aspirin EC] 81 mg PO DAILY 12/24/16 [History] Citalopram Hydrobromide [Citalopram HBr] 20 mg PO DAILY 12/24/16 [History] Dicyclomine [Bentyl] 20 mg PO BID PRN 12/24/16 [History] Pravastatin Sodium [Pravachol] 40 mg PO DAILY 12/24/16 [History] OxyCODONE Immed Rel [Roxicodone 5 MG] 5 mg PO Q6HR PRN #30 tablet 03/26/17 [Rx] Allergies/Adverse Reactions: 3 Allergy/AdvReac Type Severity Reaction Status Date / Time Penicillins [PCN] Allergy Swelling Verified 03/18/17 15:32 of Lip/Tongue/Throat Sulfa (Sulfonamide Allergy Itching Verified 03/18/17 15:32 Antibiotics) morphine AdvReac Hallucinati Verified 03/18/17 15:32 ng - Impressions ITS Impressions Cervical Spine X-Ray 03/25/17 00:00 IMPRESSION: Marker device at the anterior margin C4-C5. D/ / Benoit Dixon MD / Benoit Dixon MD Interpreting Provider: Benoit Dixon MD Cervical Spine X-Ray 03/25/17 00:00 IMPRESSION: 1. Single lateral radiograph of the cervical spine demonstrating sequela of an anterior C4-C5 fusion and discectomy. D/ / 03/25/2017 11:22:56 Willie Bishop MD / Nicole Pedroza Interpreting Provider: Willie Bishop MD Cervical Spine X-Ray 03/26/17 08:30 IMPRESSION: Satisfactory appearance of the cervical spine following ACDF at C4-C5. Mild residual pre-spinal soft tissue swelling. D/ / Samy Escalona MD / Samy Escalona MD Interpreting Provider: Samy Escalona MD Date of admission: 03/25/17 11:36 Primary care physician: Wagner Minor MD Consults: 03/25/17 11:39 Consult to Occupational Therapy [CONS] Routine Comment: Evaluate, develop and implement POC Reason for Consult: Postoperative rehabilitation Consult to Physical Therapy [CONS] Routine Comment: Evaluate, develop and implement POC Reason for Consult: Postoperative rehabilitation Consult to Spine Navigator [CONS] [CONS] Routine 03/25/17 12:00 Consult to Pastoral Services [CONS] Routine Comment: pt request - Patient Status Disposition: Home, Self-Care Condition: Good Functional capacity at discharge: independent ambulation Overall status at discharge: patient is progressing back to baseline - Discharge Instructions Follow Up With: Wagner Minor MD [Primary Care Provider] - - Diet and Activity Activity: as per physical therapy Diet: advance to your usual diet - Hospital Course Hospital course: Ms. Falcon is a 81 year old female The patient had an uneventful postoperative course. Progressed from intravenous analgesic needs to oral analgesic needs only. Remained neurovascularly intact and mobilized satisfactorily. All intraoperative and/or postoperative radiographic studies were satisfactory. Patient is discharged with plan for rehabilitation and follow-up in 2 weeks post discharge on analgesic medication and patient's home medications. - Time Spent with Patient Total time spent providing and/or coordinating discharge services: - VTE Documentation of Mechanical Device: Intermittent pneumatic compression device
== END 2017-03-26 15:25 | disposition home or self-care (01) | DRG 472 ==
LOC: SAMDAY 06:05 → 3NENU 11:36
PROVIDERS: ADMIT Orthopaedic Surgery Orthopaedic Surgery of the Spine; ATTEND Orthopaedic Surgery Orthopaedic Surgery of the Spine

== ENCOUNTER 2020-02-04 21:47 | Observation (INO) ==
[2020-02-04] MEDS ORDERED: Ondansetron 4 MG/2 ML VIAL IVP ONE (22:02)
[2020-02-04] MEDS ORDERED: 0.9 % Sodium Chloride 1,000 ML IVC ONE (22:03)
[2020-02-04] MEDS ORDERED: Aspirin 81 MG TAB.CHEW PO ONE (22:52)
[2020-02-04 23:12] LABS: Bacteria,Urine Few per hpf (None-Few); Bilirubin,Urine Negative (Negative); Blood,Urine Small (Negative); Clarity,Urine Clear (Clear); Color,Urine Yellow (Yellow); Glucose,Urine (UA) Normal (Normal); Ketones,Urine 20 mg/dL (Negative); Leukocyte Esterase,Urine Trace (Negative); Nitrite,Urine Negative (Negative); PH,Urine 5.5 pH Units (5.0-8.0); Protein,Urine Trace mg/dL (Neg-Trace); RBC,Urine 0-3 per hpf (0-3); Specific Gravity,Urine 1.024 (1.010-1.025); Squamous Epithelial Cell,Urine Few per hpf (None-Few); Urobilinogen,Urine Normal (Normal); WBC,Urine 0-3 per hpf (0-3)
[2020-02-04 23:38] LABS: Basophils % 0.5 %; Eosinophils # 0.1 K/mcL (0.0-0.6); Hematocrit 41.1 % (35.3-44.9); Hemoglobin 13.5 g/dL (11.5-15.4); Immature Granulocytes % 0.2 % (0-4); Mean Corpuscular HGB Conc 32.8 g/dL (31.6-35.5); Mean Corpuscular Hemoglobin 29.7 pg (28.0-33.3); Mean Corpuscular Volume 90.3 fL (83.0-100.0); Mean Platelet Volume 11.7 fL (9.4-12.4); Monocytes # 0.4 K/mcL (0.0-1.3); Monocytes % 6.2 %; Neutrophils # 4.7 K/mcL (1.6-8.9); Platelet Count 192 K/mcL (140-400); Red Blood Count 4.55 M/mcL (3.82-4.97); Red Cell Distribution Width 12.4 % (11.5-14.5); Segmented Neutrophils % 76.1 %; White Blood Count 6.1 K/mcL (4.3-11.1)
[2020-02-04 23:54] LABS: BUN/Creatinine Ratio 22 (6-26); Blood Urea Nitrogen 21 mg/dL (8-23); Carbon Dioxide 22 mEq/L (23-29); Chloride 107 mEq/L (98-107); Glucose 137 mg/dL (70-105); Magnesium 1.9 mg/dL (1.6-2.6); Osmolality,Calculated 293 (280-300); Potassium 4.6 mEq/L (3.5-5.1); Sodium 139 mEq/L (136-145); eGFR For African Americans > 60 (> 60); eGFR For Non-African Americans 55 (> 60)
[2020-02-04 23:55] LABS: Troponin I < 0.03 ng/mL (< 0.04)
[2020-02-05] MEDS ORDERED: Naloxone 0.4 MG/ML INJ IVP PRN (02:52)
[2020-02-05] MEDS ORDERED: *HR* Heparin 5,000 UNIT/ML VIAL IVP PRN ×2 (02:59)
[2020-02-05] MEDS ORDERED: *HR* Heparin 5,000 UNIT/ML VIAL IVP ONE (02:59)
[2020-02-05] MEDS ORDERED: Heparin 25,000UNIT/250ML 1/2NS 25,000 UNIT/250 ML IV.SOLN IVC SCH (03:00)
[2020-02-05] MEDS ORDERED: Ondansetron 4 MG/2 ML VIAL IVP PRN (04:22)
[2020-02-05 04:35] LABS: INR 1.1; Prothrombin Time 12.4 Seconds (9.4-12.1)
[2020-02-05 04:36] LABS: Basophils % 0.1 %; Eosinophils % 0.1 %; Hematocrit 39.5 % (35.3-44.9); Hemoglobin 12.6 g/dL (11.5-15.4); Immature Granulocytes % 0.4 % (0-4); Lymphocytes # 1.1 K/mcL (0.6-4.6); Mean Corpuscular HGB Conc 31.9 g/dL (31.6-35.5); Mean Corpuscular Hemoglobin 29.1 pg (28.0-33.3); Mean Corpuscular Volume 91.2 fL (83.0-100.0); Mean Platelet Volume 11.9 fL (9.4-12.4); Monocytes # 0.3 K/mcL (0.0-1.3); Monocytes % 4.3 %; Neutrophils # 6.2 K/mcL (1.6-8.9); Platelet Count 204 K/mcL (140-400); Red Blood Count 4.33 M/mcL (3.82-4.97); Red Cell Distribution Width 12.1 % (11.5-14.5); Segmented Neutrophils % 81.1 %; White Blood Count 7.7 K/mcL (4.3-11.1)
[2020-02-05 04:37] LABS: Heparin anti-factor XA UFH < 0.04 IU/mL (0.30-0.70)
[2020-02-05 04:53] LABS: BUN/Creatinine Ratio 20 (6-26); Blood Urea Nitrogen 18 mg/dL (8-23); Calcium 8.3 mg/dL (8.6-10.3); Carbon Dioxide 20 mEq/L (23-29); Chloride 110 mEq/L (98-107); Glucose 111 mg/dL (70-105); Osmolality,Calculated 291 (280-300); Sodium 139 mEq/L (136-145); Troponin I < 0.03 ng/mL (< 0.04); eGFR For African Americans > 60 (> 60); eGFR For Non-African Americans > 60 (> 60)
[2020-02-05] MEDS ORDERED: Perflutren Lipid Microsphere 1.3 ML in 0.9 % Sodium Chloride 8.7 ML IVP PRN (09:07)
[2020-02-05] MEDS: Aspirin Enteric Coated 81 MG Tablet PO SCH (10:15)
[2020-02-05] MEDS ORDERED: Nitroglycerin 0.4 MG TAB.SUBL SL PRN (10:59)
[2020-02-05] MEDS ORDERED: lisinopriL 5 MG TABLET PO SCH (11:00)
[2020-02-05] MEDS: Ondansetron 4 MG/2 ML VIAL IVP PRN ×2 (14:10→20:28)
[2020-02-05] MEDS: amLODIPine 5 MG TABLET PO SCH (17:01)
[2020-02-05] MEDS: *HR* Heparin 5,000 UNIT/ML VIAL SQ SCH (17:01)
[2020-02-06] MEDS: *HR* Heparin 5,000 UNIT/ML VIAL SQ SCH (05:35)
[2020-02-06] MEDS: Ondansetron 4 MG/2 ML VIAL IVP PRN (08:07)
[2020-02-06] MEDS: Aspirin Enteric Coated 81 MG Tablet PO SCH (08:09)
[2020-02-06] MEDS: amLODIPine 5 MG TABLET PO SCH (08:09)
[2020-02-06 08:38] VITALS: BP 147/82
[2020-02-06] MEDS ORDERED: lisinopriL 10 MG TABLET PO SCH (09:00)
[2020-02-06] MEDS ORDERED: Metoprolol XL (24 HR) Succ 50 MG TAB.ER.24H PO SCH (09:00)
[2020-02-06] MEDS ORDERED: NON-FORMULARY MEDICATION 1 EACH EACH (Pravastatin Sodium [Pravachol] 40 MG) PO SCH (09:00)
== END 2020-02-06 09:41 | disposition home or self-care (01) ==
LOC: EMEROOARM 21:47 → 3BNU 21:47
PROVIDERS: ADMIT Internal Medicine; ATTEND Internal Medicine